=== PATIENT | male | born 1980 | race Caucasian/White ===

== ENCOUNTER 2024-10-09 11:47 | Observation (INO) | payer MEDICAID, SELFPAY ==
[2024-10-09 11:47] VITALS: BMI 30.8
[2024-10-09 11:53] VITALS: BP 120/89; PULSE 74; RESP 18; TEMP 36.7; O2SAT 98; BMI 30.2
--- NOTE | 2024-10-09 12:08 | XR_ITS ---
Examination: Abdomen sonogram, Limited Date and time of exam: October 09, 2024 1229 hours INDICATIONS: Onset right upper abdominal pain beginning 2 days ago Technique: Real-time eubanks scale transabdominal sonographic images of the upper abdomen obtained. Findings: Normal gallbladder Normal common bile duct 0.3 cm Pancreatic head 3.7 cm Liver 15.2 cm fatty infiltration smooth contour Normal hepatopedal portal venous flow Patent IVC IMPRESSION: Normal gallbladder Prominent pancreatic head, clinical correlation advised Consider CT scan abdomen postcontrast follow-up if pancreatitis is a clinical consideration
--- NOTE | 2024-10-09 12:09 | PD.EDABDPN ---
ED Abdominal Pain RME/HPI General Chief Complaint: Abdominal Pain Stated complaint: RIGHT ABD PAIN SINCE YESTERDAY Time seen by provider: 10/09/24 11:57 Arrival date/time: 10/09/24 11:47 44-year-old male with no known medical history presents to the emergency room with a chief complaint of right upper abdominal pain and epigastric pain x 2 days Source: patient Mode of arrival: ambulatory Limitations: no limitations Related Data Home Medications ?Medication ?Instructions ?Recorded ?Confirmed Cholesterol Medication 1 tab PO QDAY High Cholesterol 04/20/19 Previous Rx's ?Medication ?Instructions ?Recorded ibuprofen 800 mg tablet 800 mg PO TID PRN pain #30 tabs 04/20/19 Allergies Allergy/AdvReac Type Severity Reaction Status Date / Time No Known Allergies Allergy Verified 10/09/24 11:49 ED Exam General Limitations: Present no limitations Course Orders Category Date Time Status gall bladder Stat Exams 10/09/24 12:08 Completed CBC Stat Lab 10/09/24 12:15 Completed CMP [Comprehensive Metabolic Panel] Stat Lab 10/09/24 12:15 Completed Lipase Stat Lab 10/09/24 12:15 Completed UA [Urinalysis] Stat Lab 10/09/24 12:21 Completed Urine Culture Stat Lab 10/09/24 12:21 Received HYDROcodone*/APAP 5/325 [[place] 5/325] Med 10/09/24 12:08 Discontinued 1 tab PO X1 ONE Ondansetron Odt [Zofran Odt] Med 10/09/24 12:08 Discontinued 4 mg PO X1 ONE mg Hyd/Al Hyd/Jasmin Susp [Maalox Susp] Med 10/09/24 12:08 Discontinued 30 ml PO X1 ONE Vital Signs Vital signs: Vital Signs Temperature 98.0 F 10/09/24 11:53 Pulse Rate 74 10/09/24 11:53 Respiratory Rate 18 10/09/24 11:53 Blood Pressure 120/89 H 10/09/24 11:53 Pulse Oximetry (%) 98 10/09/24 11:53 Oxygen Delivery Method Room Air 10/09/24 11:53 Abdominal Pain MDM Medications / Prescriptions Medication administrations:: Medication Administration History Discontinued Medications Hydrocodone Bitart/Acetaminophen (Hydrocodone/Apap 5/325 Tablet) 1 tab PO X1 ONE Stop: 10/09/24 12:09 Last Admin: 10/09/24 12:24 Dose: 1 tab Documented By: EDGARD Al Hydrox/Mg Hydrox/Simethicone (Mg Hyd/Al Hyd/Jasmin (Maalox Reg) Susp 30 Ml Udc) 30 ml PO X1 ONE Stop: 10/09/24 12:09 Last Admin: 10/09/24 12:24 Dose: 30 ml Documented By: EDGARD Ondansetron HCl (Ondansetron Odt 4 Mg Tabrap) 4 mg PO X1 ONE; Protocol Stop: 10/09/24 12:09 Last Admin: 10/09/24 12:25 Dose: 4 mg Documented By: EDGARD Discharge Plan Prescriptions/Referrals Prescriptions/Med Rec: No Action Cholesterol Medication 1 tab PO QDAY ibuprofen 800 mg tablet 800 mg PO TID PRN (Reason: pain) Qty: 30 0RF Referrals: Lazarus Henderson MD [Primary Care Provider] - In 1 week Patient/Caregiver Discharge Instructions Print Language: Icelandic
[2024-10-09] MEDS: MG HYD/AL HYD/SIME (Maalox Reg) SUSP 30 ML UDC PO (12:24)
[2024-10-09] MEDS: HYDROcodone/APAP 5/325 TABLET 1 TAB PO (12:24)
[2024-10-09] MEDS: ONDANSETRON ODT 4 MG TABRAP PO (12:25)
[2024-10-09 12:26] LABS: Collection Type, Urine Clean Catch; Squamous Epithelial Cell,Urine 0 /hpf (0-5)
[2024-10-09 12:48] LABS: Basophils # (Auto) 0.1 Thou/mm3 (0.0-0.2); Basophils % (Auto) 1 % (0-2.5); Eosinophils # (Auto) 0.2 Thou/mm3 (0.0-0.5); Eosinophils % (Auto) 2 % (0-10); Hematocrit 46.4 % (41.0-53.0); Hemoglobin 16.9 g/dL (13.5-16.0); Immature Granulocytes % (Auto) 1 % (0-0); Immature Granulocytes Auto 0.05 Thou/mm3 (0.00-0.00); Lymphocytes # (Auto) 1.6 Thou/mm3 (1.0-4.8); Lymphocytes % (Auto) 15 % (10-50); Mean Corpuscular HGB Conc 36.4 g/dl (31.0-37.0); Mean Corpuscular Hemoglobin 32.9 pg (25.0-35.0); Mean Corpuscular Volume 90 fL (80-100); Monocytes # (Auto) 0.8 Thou/mm3 (0.0-0.8); Monocytes % (Auto) 7 % (0-12); Neutrophils # (Auto) 8.2 Thou/mm3 (1.8-7.7); Neutrophils % (Auto) 75 % (37-80); Nucleated Red Blood Cell % 0 /100 WBC (0); Platelet Count 299 Thou/mm3 (140-440); RDW Standard Deviation 41.8 fL (35.1-43.9); Red Blood Count 5.14 Miln/mm3 (4.50-5.90)
[2024-10-09 12:52] LABS: Bacteria,Urine Rare; Bilirubin,Urine Negative (Negative); Blood,Urine Trace (Negative); Clarity,Urine Clear (Clear/Hazy); Color,Urine Yellow (Lt Yel-Yel); Glucose, Urine Negative (Negative); Ketones,Urine Negative (Negative); Leukocyte Esterase,Urine Negative (Negative); Nitrite,Urine Negative (Negative); PH,Urine 7.5 (5.0-7.0); Protein,Urine Negative (Neg - Trace); RBC,Urine 5 /hpf (0-3); Specific Gravity,Urine 1.016 (1.001-1.035); WBC,Urine 1 /hpf (0-5)
[2024-10-09 13:07] LABS: Alanine Aminotransferase 29 U/L (10-49); Albumin, Serum 4.9 gm/dL (3.5-5.0); Albumin/Globulin Ratio 1.6 (1.2-2.2); Alkaline Phosphatase 47 U/L (46-116); Anion Gap 9 (7-16); Aspartate Amino Transferase 25 U/L (0-34); BUN/Creatinine Ratio 8 Ratio (12-20); Bilirubin,Total 1.4 mg/dL (0.3-1.2); Blood Urea Nitrogen 8 mg/dL (9-23); Calcium 10.4 mg/dL (8.3-10.6); Calcium (Corrected) 10.4 mg/dL (8.5-10.1); Carbon Dioxide 28.3 mMol/L (20.0-31.0); Chloride 101 mMol/L (98-107); Estimated Creatinine Clearance 122.6 mL/min (>60); Glucose 114 mg/dL (74-106); Lipase 34 U/L (12-53); Osmolality,Calculated 274 (275-295); Potassium 3.9 mMol/L (3.4-5.1); Sodium 138 mMol/L (136-145); Total Protein 7.9 gm/dL (5.7-8.2); eGFR > 60 See Note
--- NOTE | 2024-10-09 13:15 | XR_ITS ---
Examination: CT abdomen and pelvis without contrast. Coronal 3-D reconstructions. Sagittal 2-D reconstructions. Date and time of exam:October 09, 2024 1328 hours Comparison May 16, 2012 INDICATIONS: Abdominal pain today, prominent pancreatic head on gallbladder sonogram today CTDI: vol (mGy): 9.36 DLP: (mGycm): 644 Technique: Axial images of the abdomen have been obtained, 3 mm slice thickness Intravenous contrast material has not been administered. Low dose protocols were performed. One or more of the following dose reduction techniques were used; automated exposure control, adjustment of the mA and/or KV according to patient size, use of iterative reconstruction technique. Findings: No focal liver or splenic lesions No gallstones No pancreatic mass or peripancreatic edema No adrenal mass No renal or ureteral calculi Multiple fluid distended small bowel loops in the anterior abdomen Normal appendix No diverticulitis Mild free fluid in the pelvis Normal seminal vesicles Urinary bladder intact Osseous structures intact IMPRESSION: Multiple fluid distended small bowel loops in the abdomen with mild free fluid in the pelvis, consider early small bowel obstruction Consider Gastrografin small bowel series follow-up
[2024-10-09] MEDS: KETOROLAC INJ 60 MG/2 ML VIAL 30 MG IM (13:56)
--- NOTE | 2024-10-09 14:41 | PD.EDRME ---
Rapid Medical Screening Exam E Arrival date/time: 10/09/24 11:47 44-year-old male with no known medical history presents to the emergency room with a chief complaint of right upper abdominal pain and epigastric pain x 2 days I have greeted and performed a focused initial assessment of this patient. A comprehensive ED assessment and evaluation of the patient, analysis of all test results, and completion of the medical decision making process will be conducted by additional ED providers. Chief Complaint: Abdominal Pain Time Seen by Provider: 10/09/24 11:57 Vital signs: Vital Signs Temperature 98.0 F 10/09/24 11:53 Pulse Rate 74 10/09/24 11:53 Respiratory Rate 18 10/09/24 11:53 Blood Pressure 120/89 H 10/09/24 11:53 Pulse Oximetry (%) 98 10/09/24 11:53 Oxygen Delivery Method Room Air 10/09/24 11:53 Vital signs reviewed by provider: Yes
[2024-10-09 15:23] VITALS: BP 120/80; PULSE 61; RESP 18; TEMP 36.9; O2SAT 98
--- NOTE | 2024-10-09 15:31 | EDNOTE_ITS ---
ED Abdominal Pain RME/HPI General Chief Complaint: Abdominal Pain Stated complaint: RIGHT ABD PAIN SINCE YESTERDAY Time seen by provider: 10/09/24 11:57 Arrival date/time: 10/09/24 11:47 RME / HPI RME / HPI narrative: 44-year-old male with no known medical history presents to the emergency room with a chief complaint of diffuse abdominal pain. Onset of symptoms since last night has diffuse abdominal pain, described as dull ache, severity moderate. Patient feels nauseous but denies any vomiting denies any diarrhea or constipation last bowel movement yesterday before the abdominal pain. Last passing of gas was last night. Denies any abdominal surgery denies any fever denies dysuria or frequency. Denies any fever. Related Data Home Medications ?Medication ?Instructions ?Recorded ?Confirmed Cholesterol Medication 1 tab PO QDAY High Cholester ol 04/20/19 Previous Rx's ?Medication ?Instructions ?Recorded ibuprofen 800 mg tablet 800 mg PO TID PRN pain #30 t abs 04/20/19 Allergies Allergy/AdvReac Type Severity Reaction Status Date / Time No Known Allergies Allergy Verified 10/09/24 11:49 Review of Systems Review of Systems Narrative Review of Systems: Review of system reviewed and within normal limits except mentioned in HPI ED Exam Narrative Physical exam: VITAL SIGNS: Reviewed. GENERAL APPEARANCE: Alert and interactive, follows commands, no acute distress, HEAD AND FACE: Non-traumatic. ENT: PERRL, pink conjunctivitis, eyelid no trauma, Mucous membrane moist. NECK: Supple, nontender, no nuchal rigidity. CHEST: No tenderness, no crepitus, no paradoxical movement, no retractions. LUNGS: Clear, well ventilated, symmetric, no rales, no wheezing, no ronchi, no stridor, good breath sounds bilaterally. HEART: Regular rate, regular rhythm, no murmur, no gallops. ABDOMEN: Soft, hyperkinetic hyperactive bowel sounds,, slightly distended, no guarding, nontender, no rebound, no masses, RECTAL: Deferred. GENITAL: Deferred. NEUROLOGICAL: Gross motor function intact sensory function intact, Appropriate for age. MUSCULOSKELETAL: low back nontender, full range of motion. EXTREMITIES: Nontender, full range of motion. SKIN: Color pink, dry, no rash, no lacerations, no abrasions, no contusions. LYMPHATICS: Deferred. Course Quality Measures none Orders Category Date Time Status COVID-19 Screening Questionnaire NOW Care 10/09/24 15:35 Active Decision to Admit X1 Care 10/09/24 15:[address] abdomen pelvis wo con Stat Exams 10/09/24 13:15 Completed US gall bladder Stat Exams 10/09/24 12:08 Completed CBC Stat Lab 10/09/24 12:15 Completed CMP [Comprehensive Metabolic Panel] Stat Lab 10/09/24 12:15 Completed Lipase Stat Lab 10/09/24 12:15 Completed UA [Urinalysis] Stat Lab 10/09/24 12:21 Completed Urine Culture Stat Lab 10/09/24 12:21 Received HYDROcodone*/APAP 5/325 [[place] 5/325] Med 10/09/24 12:08 Discontinued 1 tab PO X1 ONE Ketorolac Inj [Toradol Inj] Med 10/09/24 13:15 Discontinued 30 mg IM X1 ONE Morphine Inj Med 10/09/24 15:30 Discontinued 4 mg IVP X1 ONE Ondansetron Inj [Zofran Inj] Med 10/09/24 15:30 Discontinued 4 mg IVP X1 ONE Ondansetron Odt [Zofran Odt] Med 10/09/24 12:08 Discontinued 4 mg PO X1 ONE Sodium Chloride 0.9% 1000 ml [Ns] 1,000 ml Med 10/09/24 15:30 Discontinued IV 999 mls/hr mg Hyd/Al Hyd/Jasmin Susp [Maalox Susp] Med 10/09/24 12:08 Discontinued 30 ml PO X1 ONE Vital Signs Vital signs: Vital Signs Temperature 98.0 F 10/09/24 11:53 Pulse Rate 74 10/09/24 11:53 Respiratory Rate 18 10/09/24 11:53 Blood Pressure 120/89 H 10/09/24 11:53 Pulse Oximetry (%) 98 10/09/24 11:53 Oxygen Delivery Method Room Air 10/09/24 11:53 Abdominal Pain MDM MDM Narrative MDM Narrative:: 44-year-old male with no known medical history presents to the emergency room with a chief complaint of diffuse abdominal pain. Onset of symptoms since last night has diffuse abdominal pain, described as dull ache, severity moderate. Patient feels nauseous but denies any vomiting denies any diarrhea or constipation last bowel movement yesterday before the abdominal pain. Last passing of gas was last night. Denies any abdominal surgery denies any fever denies GI complaints. Patient's workup shows slight leukocytosis, the rest of the labs unremarkable. CT scan of the abdomen and pelvis showed Multiple fluid distended small bowel loops in the abdomen with mild free fluid in the pelvis, consider early small bowel obstruction Consider Gastrografin small bowel series follow-up Spoke with hospitalist, who admitted the patient for small bowel obstruction NG tube is not needed patient is not vomiting. Patient data External records reviewed:: None Clinical information provided by:: patient Social determinants that could affect healthcare access:: none Patient has the following chronic illnesses:: None How is presenting disease/condition affected by chronic disease/condition?: no chronic disease Evaluation data The following diagnostics were reviewed and interpreted by me:: lab results and radiology exam(s) Lab and/or radiology exams considered but not ordered:: None Interpretation Summary: See results in [facility] Medications / Prescriptions Medications or Prescriptions considered but not ordered:: None Medication administrations:: Medication Administration History Acetaminophen (Acetaminophen Supp 650 Mg Supp) 650 mg MS Q6HR PRN PRN Reason: PAIN OR FEVER > 100.4 Stop: 11/08/24 17:50 Lactated Ringer's (Lactated Ringers) 1,000 mls @ 80 mls/hr IV .[id number] [facility] Stop: 11/08/24 17:59 Last Admin: 10/09/24 18:25 Dose: 80 mls/hr Documented By: EF Ketorolac Tromethamine (Ketorolac Inj 30 Mg/Ml Vial) 30 mg IVP Q6HR PRN PRN Reason: PAIN SCALE 4-6 (Moderate Stop: 10/14/24 17:54 Morphine Sulfate (Morphine Sulf Inj 10 Mg/Ml Vial) 1 mg IVP Q6H PRN PRN Reason: PAIN SCALE 7-10 (Severe Stop: 10/14/24 17:50 Ondansetron HCl (Ondansetron Inj 2 Mg/Ml Inj 2 Ml) 4 mg IVP Q6H PRN; Protocol PRN Reason: NAUSEA OR VOMITING Stop: 11/08/24 17:50 Pantoprazole Sodium (Pantoprazole Inj 40 Mg Vial) 40 mg IVP QDAY [facility] Stop: 11/09/24 08:59 Discontinued Medications Acetaminophen (Acetaminophen Supp 650 Mg Supp) 650 mg MS Q6HR PRN PRN Reason: PAIN OR FEVER > 100.4 Stop: 11/08/24 17:50 Hydrocodone Bitart/Acetaminophen (Hydrocodone/Apap 5/325 Tablet) 1 tab PO X1 ONE Stop: 10/09/24 12:09 Last Admin: 10/09/24 12:24 Dose: 1 tab Documented By: OA Al Hydrox/Mg Hydrox/Simethicone (Mg Hyd/Al Hyd/Jasmin (Maalox Reg) Susp 30 Ml Udc) 30 ml PO X1 ONE Stop: 10/09/24 12:09 Last Admin: 10/09/24 12:24 Dose: 30 ml Documented By: OA Sodium Chloride (Ns) 1,000 mls @ 999 mls/hr IV .Q1H1M ONE Stop: 10/09/24 16:30 Last Infusion: 10/09/24 16:55 Dose: Infused Documented By: Admin: 10/09/24 15:54 Dose: 999 mls/hr Documented By: EF Ketorolac Tromethamine (Ketorolac Inj 60 Mg/2 Ml Vial) 30 mg IM X1 ONE Stop: 10/09/24 13:16 Last Admin: 10/09/24 13:56 Dose: 30 mg Documented By: Morphine Sulfate (Morphine Sulf Inj 10 Mg/Ml Vial) 4 mg IVP X1 ONE Stop: 10/09/24 15:31 Last Admin: 10/09/24 15:54 Dose: 4 mg Documented By: EF Ondansetron HCl (Ondansetron Odt 4 Mg Tabrap) 4 mg PO X1 ONE; Protocol Stop: 10/09/24 12:09 Last Admin: 10/09/24 12:25 Dose: 4 mg Documented By: OA Ondansetron HCl (Ondansetron Inj 2 Mg/Ml Inj 2 Ml) 4 mg IVP X1 ONE; Protocol Stop: 10/09/24 15:31 Last Admin: 10/09/24 15:54 Dose: 4 mg Documented By: EF Toradol morphine Zofran patient received IV fluids also Consultations Consultation(s) initiated? (list below): No Diagnosis Differential diagnosis abdominal pain: abdominal pain, gastroenteritis and small bowel obstruction Most likely diagnosis given after review of the tests above:: Plan Admission Indicated Admission indicated?: not indicated Explain why admission is indicated or not indicated:: Stable Admission Request Was there a request for admission?: Yes Admission Attestation Admission request attestation: Discussed case with Hospitalist service regarding admission. Discussed patients ED course, exam findings, labs, and radiology results. The Hospitalist [agrees,] to accept the patient for admission. Disposition Plan Disposition Plan: Admit Discharge Plan Plan Patient Disposition: Other Care w/in Hosp ([facility]) Problem List Clinical Impression: Small bowel obstruction
[2024-10-09] MEDS: ONDANSETRON INJ 2 MG/ML INJ 2 ML 4 MG IVP (15:54)
[2024-10-09] MEDS: MORPHINE SULF INJ 10 MG/ML VIAL 4 MG IVP (15:54)
[2024-10-09] MEDS: SODIUM CHLORIDE 0.9% 1000 ML 1,000 ML 999 ML IV (15:54)
--- NOTE | 2024-10-09 15:57 | PC.CC ---
Patient is a 44 year-old male who presents to the hospital for right ABD pain since yesterday. SHARMILAWHeide made [id number] contact with patient. ASW introduced self, role, and reason for visit. Patient appeared alert and oriented to self, location, and situation. At bedside was patient's , Chioma Junior who patient provided verbal consent to remain in the room during assessment. Patient was provided with limits of confidentiality. Patient was pleasant and engaged in initial assessment. Patient confirmed information on demographics and reports his medical decision maker in the event he is unable to make his own medical decisions is his , Chioma Junior . At home patient ambulates independently and is able to complete his own ADLs. Patient does not require any DME, oxygen, and does not receive any dialysis. Patient receives primary care at [facility] in [place] and uses [facility] for prescription medications. Upon discharge patient plans to return home. customer services coordinator to follow up with any discharge needs.
--- NOTE | 2024-10-09 17:55 | ESHP_ITS ---
<Statement entered by Alise Ricardo MD - 10/15/24 15:43> I reviewed above note and agree with findings and plans. I have also personally examined the patient with medicine team and went over assessment and plan with medical team including financial services intern and resident physician. Documentation for date of: 10/09/24 HPI History of Present Illness History of present illness: Mook Casas is a 44-year-old male with past medical history of GERD who presents on 10/09 with chief complaint of acute onset abdominal pain. Patient states that pain started day prior to admission in afternoon with no associated nausea or vomiting, was generalized, and no change in previous bowel habits. States that he was in his usual state of health when symptoms started and thought that his abdominal pain was due to not having eaten much in the day and was able to eat a meal after the pain started. He was able to have a normal BM the night prior to admission but has not had one since and is currently not passing gas. Additionally, he does not feel nauseous at this time. Denies any previous abdominal surgeries and no family history of cancer, but does state that he has a history of an abdominal hernia. This is the first time he has experienced these symptoms before. Upon arrival to ED, VSS, WBC showed mild leukocytosis, T. bili 1.4 but otherwise unremarkable. UA unremarkable. Gallbladder ultrasound unremarkable, but CT A/P showed multiple fluid distended small bowel loops in abdomen with mild free fluid in the pelvis, consider early SBO. PMHx: GERD Medications: omeprazole FHx: denies family history of cancer SHx: smoked 1 pack of cigarettes per day for 27 years, currently vapes; no alcohol or illicit drug use PSHx: none Allergies: none Review of Systems Review of Systems Systems Reviewed: All systems reviewed, normal except as documented Exam Vital Signs Temp Pulse Resp BP Pulse Ox O2 Del Method 98.5 F 61 18 120/80 98 Room Air 10/09/24 15:23 10/09/24 15:23 10/09/24 15:23 10/09/24 15:23 10/09/24 15:23 10/09/24 15:23 Narrative Exam General: AOx3, no acute distress, able to speak full sentences HEENT: NC/AT, mucous membranes moist, bilateral sclera anicteric Cardiovascular: regular rate and rhythm, S1/S2 present, no murmurs appreciated Pulmonary: clear to auscultation bilaterally, no rales/rhonchi/wheezes Abdominal: tender to palpation in epigastrium and RUQ; soft, non-distended, no rebound/guarding, normal bowel sounds present Musculoskeletal: normal ROM, no peripheral edema Skin: warm and dry, intact, no rashes Neuro: CN II-XII intact, no focal deficits Results: Labs 10/09/24 12:15 10/09/24 12:15 Labs: Short CBC 10/09/24 Range/Units 12:15 WBC 11.0 H (3.8-10.6) Thou/mm3 Hgb 16.9 H (13.5-16.0) g/dL Hct 46.4 (41.0-53.0) % Plt Count 299 (140-440) Thou/mm3 BMP 10/09/24 12:15 Sodium 138 Potassium 3.9 Chloride 101 Carbon Dioxide 28.3 BUN 8 L Creatinine 1.0 Glucose 114 H Calcium 10.4 Liver Function 10/09/24 Range/Units 12:15 Total Bilirubin 1.4 H (0.3-1.2) mg/dL AST 25 (0-34) U/L ALT 29 (10-49) U/L Alkaline Phosphatase 47 (46-116) U/L Albumin 4.9 (3.5-5.0) gm/dL Urine 10/09/24 Range/Units 12:21 Urine Color Yellow (Lt Yel-Yel) Urine Clarity Clear (Clear/Hazy) Urine pH 7.5 H (5.0-7.0) Ur Specific Dennis 1.016 (1.001-1.035) Urine Protein Negative (Neg - Trace) Urine Glucose (UA) Negative (Negative) Quality Measures Quality Measures VTE prophylaxis Medications Home Medications and Allergies Home Medications ?Medication ?Instructions ?Recorded ?Confirmed ?Type Cholesterol Medication 1 tab PO QDAY High Cholester ol 04/20/19 History Allergies Allergy/AdvReac Type Severity Reaction Status Date / Time No Known Allergies Allergy Verified 10/09/24 11:49 Visit Medications Acetaminophen (Acetaminophen Supp 650 Mg Supp) 650 mg FL Q6HR PRN PRN Reason: PAIN OR FEVER > 100.4 Stop: 11/08/24 17:50 Lactated Ringer's (Lactated Ringers) 1,000 mls @ 80 mls/hr IV .[id number] [facility] Stop: 11/08/24 17:59 Morphine Sulfate (Morphine Sulf Inj 10 Mg/Ml Vial) 1 mg IVP Q6H PRN PRN Reason: PAIN SCALE 7-10 (Severe Stop: 10/14/24 17:50 Ondansetron HCl (Ondansetron Inj 2 Mg/Ml Inj 2 Ml) 4 mg IVP Q6H PRN; Protocol PRN Reason: NAUSEA OR VOMITING Stop: 11/08/24 17:50 Pantoprazole Sodium (Pantoprazole Inj 40 Mg Vial) 40 mg IVP QDAY [facility] Stop: 11/09/24 08:59 Discontinued Medications Hydrocodone Bitart/Acetaminophen (Hydrocodone/Apap 5/325 Tablet) 1 tab PO X1 ONE Stop: 10/09/24 12:09 Last Admin: 10/09/24 12:24 Dose: 1 tab Al Hydrox/Mg Hydrox/Simethicone (Mg Hyd/Al Hyd/Jasmin (Maalox Reg) Susp 30 Ml Udc) 30 ml PO X1 ONE Stop: 10/09/24 12:09 Last Admin: 10/09/24 12:24 Dose: 30 ml Sodium Chloride (Ns) 1,000 mls @ 999 mls/hr IV .Q1H1M ONE Stop: 10/09/24 16:30 Last Infusion: 10/09/24 16:55 Dose: Infused Ketorolac Tromethamine (Ketorolac Inj 60 Mg/2 Ml Vial) 30 mg IM X1 ONE Stop: 10/09/24 13:16 Last Admin: 10/09/24 13:56 Dose: 30 mg Morphine Sulfate (Morphine Sulf Inj 10 Mg/Ml Vial) 4 mg IVP X1 ONE Stop: 10/09/24 15:31 Last Admin: 10/09/24 15:54 Dose: 4 mg Ondansetron HCl (Ondansetron Odt 4 Mg Tabrap) 4 mg PO X1 ONE; Protocol Stop: 10/09/24 12:09 Last Admin: 10/09/24 12:25 Dose: 4 mg Ondansetron HCl (Ondansetron Inj 2 Mg/Ml Inj 2 Ml) 4 mg IVP X1 ONE; Protocol Stop: 10/09/24 15:31 Last Admin: 10/09/24 15:54 Dose: 4 mg Assessment & Plan Plan Mook Casas is a 44-year-old male with past medical history of GERD who presents on 10/09 with chief complaint of acute onset abdominal pain and admitted for further management of SBO. #Small bowel obstruction secondary to ? hernia Presents with acute onset abdominal pain. Last BM evening prior to admission. Denies any nausea or vomiting at this time. However, told patient that if symptoms worsen then we will have to place an NGT. CT A/P showed multiple fluid distended small bowel loops in abdomen with mild free fluid in the pelvis, consider early SBO. ? Small bowel series ? N.p.o. ? Maintenance IVF ? NG tube if symptoms worsen ? Zofran for nausea ? Pain management: Tylenol FL, ketorolac, morphine #GERD ? Pantoprazole IV daily Hospital management: Disposition: observation, small bowel series Fluids: maintnenace LR Diet: NPO Lines: PIV DVT prophylaxis: SCDs GI prophylaxis: pantoprazole IV CODE STATUS: full code ----- Plan discussed with attending physician Dr. Davion Whitfield MD PGY-1 Internal Medicine
--- NOTE | 2024-10-09 18:12 | XR_ITS ---
Examination: Small bowel series with KUB AP supine abdomen 6 views Date and time: October 09, 2024 1829 hours INDICATIONS: Abdominal pain and distention this week, multiple fluid distended small bowel loops on CT abdomen and pelvis October 09, 2024 TECHNIQUE AND FINDINGS: Customer Contact Sales Associate film air distended small bowel loops Patient received 120 cc Gastrografin with immediate, 30 minute, 1 hour films obtained Mildly distended small bowel loops IMPRESSION: Mildly distended small bowel loops, recommend follow-up abdomen films 9:00 PM 11:00 PM
[2024-10-09] MEDS: RINGERS LACTATED 1000 ML 1,000 ML 80 ML IV (18:25)
[2024-10-09 18:26] VITALS: BP 122/88; PULSE 56; RESP 16; TEMP 36.6; O2SAT 98
[2024-10-09 20:58] VITALS: BMI 30.2
[2024-10-09 21:15] VITALS: BP 116/71; PULSE 56; RESP 16; TEMP 36.6; O2SAT 98
--- NOTE | 2024-10-09 21:30 | XR_ITS ---
Examination: Abdomen AP single view Technique: AP portable supine abdomen, single view Exam date and time: October 09, 2024 2146 hours INDICATIONS: 3 hour delayed film post small bowel series today, abdominal pain and distention, dilated small bowel loops on CT abdomen and pelvis October 09, 2024 1328 hours FINDINGS: Contrast almost entirely in the colon IMPRESSION: Negative for small bowel obstruction No further films are needed
[2024-10-10] VITALS: BP 128/81; PULSE 69; RESP 18; TEMP 36.9; O2SAT 95
--- NOTE | 2024-10-10 01:42 | PC.NURSE ---
Per patient he will ask his to bring his medication from home.
[2024-10-10 04:00] VITALS: BP 125/84; PULSE 60; RESP 18; TEMP 36.6; O2SAT 94
[2024-10-10 06:27] LABS: Basophils # (Auto) 0.1 Thou/mm3 (0.0-0.2); Basophils % (Auto) 1 % (0-2.5); Eosinophils # (Auto) 0.3 Thou/mm3 (0.0-0.5); Eosinophils % (Auto) 4 % (0-10); Hematocrit 42.7 % (41.0-53.0); Hemoglobin 14.8 g/dL (13.5-16.0); Immature Granulocytes % (Auto) 1 % (0-0); Immature Granulocytes Auto 0.04 Thou/mm3 (0.00-0.00); Lymphocytes # (Auto) 1.8 Thou/mm3 (1.0-4.8); Lymphocytes % (Auto) 20 % (10-50); Mean Corpuscular HGB Conc 34.7 g/dl (31.0-37.0); Mean Corpuscular Hemoglobin 32.9 pg (25.0-35.0); Mean Corpuscular Volume 95 fL (80-100); Monocytes # (Auto) 0.8 Thou/mm3 (0.0-0.8); Monocytes % (Auto) 9 % (0-12); Neutrophils # (Auto) 5.9 Thou/mm3 (1.8-7.7); Neutrophils % (Auto) 66 % (37-80); Nucleated Red Blood Cell % 0 /100 WBC (0); Platelet Count 220 Thou/mm3 (140-440); RDW Standard Deviation 44.2 fL (35.1-43.9); White Blood Count 8.9 Thou/mm3 (3.8-10.6)
[2024-10-10 06:50] LABS: Anion Gap 9 (7-16); BUN/Creatinine Ratio 9 Ratio (12-20); Blood Urea Nitrogen 10 mg/dL (9-23); Calcium 8.4 mg/dL (8.3-10.6); Carbon Dioxide 28.6 mMol/L (20.0-31.0); Cardiac Risk Estimate 6.2 RATIO (4.0-6.7); Chloride 108 mMol/L (98-107); Cholesterol 137 mg/dL (132-200); Creatinine (Component) 1.1 mg/dL (0.6-1.3); Estimated Creatinine Clearance 111.5 mL/min (>60); Glucose 95 mg/dL (74-106); HDL Cholesterol 22 mg/dL (40-60); LDL Cholesterol,Calculated 88 mg/dL (0-130); Magnesium 2.2 mg/dL (1.6-2.6); Osmolality,Calculated 289 (275-295); Phosphorous 2.6 mg/dL (2.4-5.1); Potassium 3.8 mMol/L (3.4-5.1); Sodium 146 mMol/L (136-145); Triglycerides 135 mg/dL (30-150); eGFR > 60 See Note
[2024-10-10 08:00] VITALS: BP 105/65; PULSE 72; RESP 16; TEMP 36.7; O2SAT 97
[2024-10-10] MEDS: PANTOPRAZOLE INJ 40 MG VIAL IVP (08:06)
[2024-10-10] MEDS: RINGERS LACTATED 1000 ML 1,000 ML 80 ML IV (08:07)
[2024-10-10] MEDS: POTASSIUM CHLORIDE 20 mEq TABCR PO (09:12)
--- NOTE | 2024-10-10 09:49 | ESDS_ITS ---
<Statement entered by Alise Ricardo MD - 10/15/24 15:45> I reviewed above note and agree with findings and plans. I have also personally examined the patient with medicine team and went over assessment and plan with medical team including general internal medicine doctor and resident physician. Planned Discharge Date 10/10/24 DS: Providers Provider Date of admission: 10/09/24 17:51 Primary care physician: Lazarus Henderson MD Admitting Provider: Alise Ricardo MD Attending Provider on Admission: Alise Ricardo MD Attending Provider on DC: Maggi Posada MD Discharging Provider: Maggi Posada MD DS: Diagnosis Problem List Completed Was Problem List Reviewed/Reconciled?: Yes Hospital Course Hospital Course Hospital course: Mr. Casas is a 44-year-old male with past medical history of GERD who presented on 10/09 with chief complaint of acute onset abdominal pain and admitted for further management of SBO. Patient's last BM was the evening prior to admission. CT A/P showed multiple fluid distended small bowel loops in abdomen with mild free fluid in the pelvis suggestive of early SBO. Patient was started on small bowel series, and first Abdomen X-ray showed full contrast in colon. Pt seen and examined at bedside. Patient states that his abdominal pain is only present when he eats, and dissipates after. Pt denies any complaints otherwise. Pt is medically cleared to be discharged today with the following instructions: Continue other home medications as prescribed. Follow up with PCP within 1-2 weeks. Please come to the [facility] if you do not have a PCP in 1 week Please continue to drink lots of fluids and maintain a healthy diet including less processed foods and more vegetables and lean meats Please follow up with your PCP for a referral to see a GI specialist for an outpatient colonscopy Avoid any NSAIDs, and use Tylenol for pain Return to the ED if you develop new or worsening symptoms. Hospital discharge diagnoses treated during hospital stay: #Small bowel obstruction secondary to ? hernia #GERD Status at Discharge Cognitive/behavioral status at discharge: stable Time Spent with Patient Time attestation: Total time spent providing and/or coordinating discharge services: 35 Time spent: Greater than 30 minutes Exam Vital Signs Temp Pulse Resp BP Pulse Ox O2 Del Method 98.1 F 72 16 105/65 97 Room Air 10/10/24 08:00 10/10/24 08:00 10/10/24 08:00 10/10/24 08:00 10/10/24 08:00 10/10/24 08:00 Narrative Exam General Appearance: Pt in NAD laying comfortably in bed. HEENT: NC/AT, no scleral icterus, no conjunctival pallor, MMM Lungs: CTAB, no wheezes or crackles appreciated CVS: RRR, S1/S2 heard, no murmurs or rubs appreciated ABD: Soft, mild tenderness to umbilical region, non-distended, BS + in all 4 quadrants EXT: no deformity/edema/lesions/cyanosis/clubbing, radial pulses 2+ BL, DP pulses 2 + BL SKIN: Skin exam normal without any rashes. Neuro: A&O x 3. No gross neurological deficits. Motor and sensory grossly intact in B/L UL and LL. Psych: Appropriate mood and affect Discharge Plan Plan Patient Disposition: HOME (Self Care) Care Plan Goals: Continue other home medications as prescribed. Follow up with PCP within 1-2 weeks. Please come to the [facility] if you do not have a PCP in 1 week Please continue to drink lots of fluids and maintain a healthy diet including less processed foods and more vegetables and lean meats Please follow up with your PCP for a referral to see a GI specialist for an outpatient colonscopy Avoid any NSAIDs, and use Tylenol for pain Return to the ED if you develop new or worsening symptoms. Prescriptions/Referrals Prescriptions/Med Rec: Discontinued Cholesterol Medication 1 tab PO QDAY ibuprofen 800 mg tablet 800 mg PO TID PRN (Reason: pain) Qty: 30 0RF Referrals: Lazarus Henderson MD [Primary Care Provider] - Patient/Caregiver Discharge Instructions Discharge Activity: activity as tolerated Other Discharge Diet Instructions: Diet as tolerated, less fatty foods Education Materials: How the Colon Works, Obstruction Intestinal Print Language: Cymro Stand Alone Forms: Roseline Award Info., Patient Portal Info Letter, Work/Release Restrictions Discharge Order Discharge Orders: Discharge (Routine); Ordered 10/10/24 Ordered By: Maggi Posada Quality Discharge Quality Measures VTE prophylaxis
[2024-10-10 12:00] VITALS: BP 107/70; PULSE 60; RESP 16; TEMP 36.2; O2SAT 96
== END 2024-10-10 13:56 | disposition home or self-care (01) ==
LOC: SERX 12:23 → SERHOLD 18:02 → S3NX 20:54
PROVIDERS: Nurse Practitioner Family; Admitting Provider Internal Medicine; Emergency Provider Emergency Medicine; PCP Family Medicine; Visit Provider Internal Medicine
DX: K56.609 Unspecified intestinal obstruction, unspecified as to partial versus complete obstruction (principal); K21.9 Gastro-esophageal reflux disease without esophagitis; F17.290 Nicotine dependence, other tobacco product, uncomplicated
CPT/HCPCS: 36415; 74018; 74176; 74250; 76705; 80048; 80053; 80061; 81001; 83690; 83735; 84100; 85025; 87086; 96361; 96372; 96374; 96375; 99285; A4649; G0378; J1885; J2270; J2405; J2470; J7030; J7120; Q0162; A9270